=== PATIENT | male | born 1995 | race Caucasian/White ===

== ENCOUNTER 2018-07-01 14:51 | Emergency (ER) | payer BC ==
[~2018-07-01] VITALS: Ht 182.9 cm; Wt 72.6 kg
--- NOTE | 2018-07-01 15:18 | NUR ---
Patient discharged to home in stable conditon. Written and verbal after care instructions given. Patient verbalizes understanding of instructions.pt walks in steady gait.
== END 2018-07-01 15:24 | disposition home or self-care (01) ==
LOC: ER 14:51
DX: F41.9 Anxiety disorder, unspecified (principal)
CPT/HCPCS: A4663